=== PATIENT | female | born 1950 | race Caucasian/White ===

== ENCOUNTER 2022-10-17 06:59 | Day surgery (SDC) | payer MEDICARE, OTHER ==
[2022-10-17] VITALS (12 sets, daily range): BP systolic 104–147; BP diastolic 46–77; PULSE 68–83; TEMP 97.2–98.6
[~2022-10-17] VITALS: Ht 162.6 cm; Wt 43.1 kg
[2022-10-17] MEDS ORDERED: LIPITOR 10MG10 MG PO (07:29)
[2022-10-17] MEDS ORDERED: HYZAAR 25 MG-101 TAB PO (07:29)
[2022-10-17] MEDS ORDERED: GLUCOPHAGE850 MG/TAB PO (07:29)
[2022-10-17] MEDS ORDERED: CELEBREX 200MG200 MG PO (07:31)
[2022-10-17] MEDS ORDERED: FOSAMAX 70MG TA70 MG PO (07:31)
[2022-10-17] MEDS ORDERED: TYLENOL PM EXTR1 TA1 PO (07:32)
[2022-10-17] MEDS ORDERED: ULTRAM 50MG TAB50 MG PO (07:32)
[2022-10-17] MEDS ORDERED: TYLENOL 500MG500 MG PO (07:33)
[2022-10-17] MEDS ORDERED: ADVIL200 MG PO (07:33)
[2022-10-17] MEDS ORDERED: ASPIRIN 81M81 MG/TA2 PO (07:34)
[2022-10-17] MEDS ORDERED: VITAMIND3 5000 PO (07:34)
[2022-10-17] MEDS ORDERED: NATURAL IRON65 MG PO (07:34)
[2022-10-17] MEDS ORDERED: FOLIC ACID800 MCG PO (07:35)
[2022-10-17] MEDS ORDERED: VITAMINC1000TA PO (07:35)
[2022-10-17] MEDS ORDERED: CALTRATE-600 W600 MG PO (07:36)
[2022-10-17] MEDS ORDERED: [UNRECOGNIZED DRUG - OTHER] PO (07:37)
--- NOTE | 2022-10-17 08:25 | NUR ---
PORT ACCESSED BY Temo INIGUEZ RN.
--- NOTE | 2022-10-17 09:05 | NUR ---
Initial visit; Patient and her family thanked Printing Assistant for looking in on Destiny and offering encouragement and prayer prior to her surgical procedure. Printing Assistant also offered God's blessings for Destiny and a thorough recovery.
--- NOTE | 2022-10-17 17:46 | NUR ---
Patient sitting up in bed eating dinner. She has done well post op. Vital stable on room air. Pain managed with scheduled tylenol. Left hip aquacell dressing CDI. Teds & Scds. Koch to LAZ. Patient has been up and ambulated the halls with walker & gaitbelt and her tennis shoes on and she did well. Her supportive family has been bedside.
--- NOTE | 2022-10-17 18:40 | NUR ---
Patient continues to do well. Tolerated dinner tray. Looking forward to getting up and walking halls again tonight. Report to isak to resumes cars.
--- NOTE | 2022-10-17 21:54 | NUR ---
SHIFT REPORT FROM BALBIR WEI. PATIENT IN BED ON ROOM ENTRY. DENIES PAIN. HS MEDS PER EMAR. AMBULATED IN HALLS X2 WITH SBA. L HIP AQUACELL CDI. DENIES ADDITIONAL NEEDS. CALL LIGHT IN REACH.
[2022-10-18 03:27] VITALS: BP 124/62; PULSE 71; TEMP 98.2
[2022-10-18 05:23] LABS: HEMOGLOBIN 10.2 g/dl (12.5-16.0)
[2022-10-18 05:30] LABS: HEMATOCRIT 32.8 % (37.0-47.0)
--- NOTE | 2022-10-18 05:32 | NUR ---
RAMIREZ CATHETER DISCONTINUED. 10 MLS REMOVED FROM BALLOON. TOLERATED PROCEDURE. HAT IN TOILET FOR NEXT VOID.
[2022-10-18 05:37] LABS: CALCIUM 8.3 mg/dL (8.4-10.2); CREATININE, serum 0.67 mg/dL (0.57-1.11); POTASSIUM 3.8 mmol/L (3.5-4.5)
[2022-10-18 07:35] VITALS: BP 113/54; PULSE 71; TEMP 98.2
[2022-10-18] MEDS ORDERED: DOXYCYCLINE 10100 MG PO (11:33)
[2022-10-18] MEDS ORDERED: CELEBREX 200MG200 MG PO (11:33)
[2022-10-18] MEDS ORDERED: NORCO 325 MG-51 TAB PO (11:33)
[2022-10-18] MEDS ORDERED: ASPIRIN 81M81 MG/TA2 PO (11:33)
[2022-10-18 11:40] VITALS: BP 133/65; PULSE 78; TEMP 98.5
--- NOTE | 2022-10-18 14:16 | NUR ---
DISCHARGE INSTRUCTIONS PROVIDED. PATIENT EDUCATION GIVEN. PORTACATH DEACCESSED AFTER HEPARIN FLUSH ADMINISTERED. FOLLOW UP APPOINTMENTS DISCUSSED. PATIENT AWARE OF KATT LAURENT CALLING ON THURSDAY FOR FOLLOW UP AND PT ORDERS. PATIENT AWARE AND DENIES ANY QUESTIONS OR CONCERNS. MEDICATIONS REVIEWED. PATIENT ESCORTED OUT VIA WHEELCHAIR.
== END 2022-10-18 13:35 | disposition home or self-care (01) ==
LOC: SDCO 06:59 → SURG 12:32 → SDCO 14:00
PROVIDERS: Physician Assistant
DX: M16.12 Unilateral primary osteoarthritis, left hip (principal); E11.9 Type 2 diabetes mellitus without complications; E78.5 Hyperlipidemia, unspecified; M81.0 Age-related osteoporosis without current pathological fracture; I10 Essential (primary) hypertension; C85.90 Non-Hodgkin lymphoma, unspecified, unspecified site; K21.9 Gastro-esophageal reflux disease without esophagitis; Z79.83 Long term (current) use of bisphosphonates; Z79.899 Other long term (current) drug therapy; Z79.84 Long term (current) use of oral hypoglycemic drugs; Z95.828 Presence of other vascular implants and grafts
CPT/HCPCS: OP; A4314; A9284; C1776; J0360; J0690; J1100; J1580; J1644; J1815; J1885; J2250; J2270; J2405; J2704; J2795; J3010; J7120

== ENCOUNTER → 2024-06-14 | Outpatient (CLI) | payer MEDICARE, OTHER ==
[~2024-06-14] MED LIST: ADVIL200 MG PO; ASPIRIN 81M81 MG/TA2 PO; CALTRATE-600 W600 MG PO; CELEBREX 200MG200 MG PO; DOXYCYCLINE 10100 MG PO; FOLIC ACID800 MCG PO; FOSAMAX 70MG TA70 MG PO; GLUCOPHAGE850 MG/TAB PO; HYZAAR 25 MG-101 TAB PO; Iohexol 300 - 100 ML VIAL IV ONE; LIPITOR 10MG10 MG PO; NATURAL IRON65 MG PO; NORCO 325 MG-51 TAB PO; NS 100 ML IV SCH; TYLENOL 500MG500 MG PO; TYLENOL PM EXTR1 TA1 PO; ULTRAM 50MG TAB50 MG PO; VITAMINC1000TA PO; VITAMIND3 5000 PO; [UNRECOGNIZED DRUG - OTHER] PO
== END ==
LOC: COL.RAD 08:37
DX: C83.38 Diffuse large B-cell lymphoma, lymph nodes of multiple sites (principal); E04.1 Nontoxic single thyroid nodule
CPT/HCPCS: Q9967